=== PATIENT | male | born 1990 | race Caucasian/White ===

== ENCOUNTER 2017-01-14 02:53 | Observation (INO) | payer MEDICAID ==
[~2017-01-14] VITALS: Ht 175.3 cm; Wt 95.3 kg
[2017-01-14 03:00] VITALS: BP 109/78; PULSE 129; RESP 19; TEMP 100.3; O2SAT 97
--- NOTE | 2017-01-14 03:00 | NUR ---
Patient to ER bed 8 to gown for evaluation. Side rails up. Report given to CRISTAL Coleman.
--- NOTE | 2017-01-14 03:05 | NUR ---
Pt states that since 1900 pt has been having frequent nausea and diarrhea with nausea. Pt reports body aches, malaise, and lower back pain 5/10. Pt has not been able to keep anything down. Pt placed on nuclear monitoring technician and will continue to monitor. No other injuries or complaints mentioned/noted. No distress noted.
--- NOTE | 2017-01-14 03:10 | NUR ---
# 18 gauge angiocath placed to L AC. Use of asceptic technique. Opsite placed over site. Blood return noted. Blood for lab drawn from site. Flushed with 10 cc of normal saline. No evidence of infiltration noted. Patient tolerated well.
[2017-01-14] MEDS ORDERED: PROCHLORPERAZINE EDISYLATE 10 MG/2 ML VIAL IVP ONE (03:15)
[2017-01-14] MEDS ORDERED: NACL 0.9% 1,000 ML IV ONE ×2 (03:15→04:00)
[2017-01-14 03:39] LABS: BASOPHILS # (AUTO) 0.2 K/uL (0.0-0.2); BASOPHILS % (AUTO) 1.2 % (0.0-2.0); EOSINOPHILS # (AUTO) 0.1 K/uL (0.0-0.4); HEMATOCRIT 53.3 % (36-54); HEMOGLOBIN 17.9 g/dL (14.0-18.0); LYMPHOCYTES # (AUTO) 0.7 K/uL (1.0-5.5); LYMPHOCYTES % (AUTO) 5.6 % (20.5-51.5); MEAN CORPUSCULAR HEMOGLOBIN 27 pg (27-31); MEAN CORPUSCULAR HGB CONC 34 % (32-36); MEAN CORPUSCULAR VOLUME 80 fL (79.0-98.0); MONOCYTES # (AUTO) 0.4 K/uL (0.0-1.0); MONOCYTES % (AUTO) 2.8 % (1.7-9.3); NEUTROPHILS # (AUTO) 11.1 K/uL (1.8-7.7); NEUTROPHILS % (AUTO) 89.4 % (40.0-70.0); PLATELET COUNT (AUTO) 213 K/uL (130-430); RED BLOOD CELL COUNT(AUTO) 6.65 MIL/uL (4.2-6.2); RED CELL DISTRIBUTION WIDTH 12.3 % (9.0-15.0); WHITE BLOOD COUNT (AUTO) 12.5 K/uL (4.8-10.8)
[2017-01-14 03:46] LABS: ANION GAP 12 (5-15); CALCIUM 9.6 mg/dL (8.4-11.0); CHLORIDE 103 mmol/L (98-107); CREATININE 1.13 mg/dL (0.55-1.30); GLUCOSE 140 mg/dL (70-99); POTASSIUM 4.2 mmol/L (3.5-5.1); SODIUM SERUM 142 mmol/L (136-145); UREA NITROGEN, BLOOD 22 mg/dL (8-21)
[2017-01-14 03:48] LABS: GFR AFRICAN AMERICAN 99 mL/min (>90)
[2017-01-14 03:52] LABS: BARBITURATE, URINE NEGATIVE (NEG <=200); BENZODIAZEPINE, URINE NEGATIVE (NEG <=150); CANNABINOID, URINE NEGATIVE (NEG <=50); COCAINE, URINE NEGATIVE (NEG <=150); METHAMPHETAMINES SCREEN,URINE NEGATIVE (NEG <=500); OPIATE, URINE NEGATIVE (NEG <=100); PHENCYCLIDINE SCREEN,URINE NEGATIVE (NEG <=25); UR TRICYCLIC ANTIDEPRESSANTS NEGATIVE (NEG <=300); URINE AMPHETAMINE NEGATIVE (NEG <=500); URINE METHADONE NEGATIVE (NEG <=200); URINE OXYCODONE SCREEN NEGATIVE (NEG <=100); URINE PROPOXYPHENE SCREEN NEGATIVE (NEG <=300)
[2017-01-14 03:55] LABS: BILIRUBIN,URINE 1+ (NEGATIVE); BLOOD, URINE 2+ (NEGATIVE); CLARITY/URINE CLOUDY (CLEAR); COLOR,URINE YELLOW (YELLOW); GLUCOSE,URINE NEGATIVE (NEGATIVE); KETONES,URINE TRACE (NEGATIVE); LEUKOCYTE ESTERASE ,URINE NEGATIVE (NEGATIVE); NITRITE, URINE NEGATIVE (NEGATIVE); PROTEIN URINE 1+ (NEGATIVE); UROBILINOGEN,URINE 0.2 (0.2-1.0)
[2017-01-14 03:55] LABS: ALANINE AMINOTRANSFERASE 83 U/L (12-78); ALBUMIN 4.3 g/dL (3.4-4.8); ASPARTATE AMINOTRANSFERASE 32 U/L (10-37); TOTAL BILIRUBIN 0.8 mg/dL (0.0-1.0); TOTAL PROTEIN, SERUM 8.7 g/dL (6.4-8.3)
--- NOTE | 2017-01-14 04:00 | NUR ---
Sepsis protocol re-evaluated with Dr. Medrano. No further orders at this time.
[2017-01-14 04:23] LABS: BACTERIA,URINE MODERATE /HPF (None Seen); WBC,URINE 0-3 /HPF (0-3)
[2017-01-14 04:24] LABS: MUCUS,URINE None Seen /LPF (None Seen)
--- NOTE | 2017-01-14 04:45 | NUR ---
Pt is positive orthostatic vitals. Pt was dizzy when standing up. Dr. Medrano made aware.
[2017-01-14] MEDS ORDERED: ONDANSETRON HCL 4 MG/2 ML VIAL IVP PRN (05:30)
--- NOTE | 2017-01-14 06:37 | NUR ---
ADMISSION NOTE Received patient from ER via gurney. Patient admitted with diagnosis of Dehydration. Patient is awake, alert, oriented X 4. Patient oriented to hospital room, call light, toileting, pain management and safety-teach back done. Patient informed that Maida will be his nurse and that their room number is 133A. Personal belongings checked and Belongings List documented. Call light within reach.
--- NOTE | 2017-01-14 06:40 | NUR ---
Patient will be admitted to care of Dr. Garcia. Admitted to Telemetry unit. Will go to room 135A. Summary report printed. Report given to admitting RN.
[2017-01-14 06:43] VITALS: BP 126/73; PULSE 132; RESP 19; TEMP 98
--- NOTE | 2017-01-14 08:32 | NUR ---
OPENING NOTE RECEIVED REPORT FROM NIGHT NURSE, PATIENT IS RESTING COMFORTABLY IN BED WITH NO COMPLAINTS OF PAIN, NO NOTED DISTRESS, DISCOMFORT OR SOB. PATIENT IS ALERT AND ORIENTED AND ABLE TO COMMUNICATE NEEDS TO STAFF. PATIENT IS AMBULATORY. PATIENT IS EDUCATED TO CALL FOR ASSISTANCE BEFORE GETTING UP, BED IS IN LOWEST POSITION AND CALL LIGHT IS WITHIN REACH. WILL CONTINUE TO MONITOR.
[2017-01-14] MEDS: NACL 0.9% 1,000 ML IV SCH ×4 (10:00→20:26)
--- NOTE | 2017-01-14 10:34 | NUR ---
NOTE PATIENT IS RESTING IN BED COMFORTABLY WITH NO COMPLAINTS OF PAIN, NO NOTED DISTRESS, DISCOMFORT OR SOB. IV HYDRATION WAS STARTED AND PATIENT IS TOLERATING IT WELL. VITAL SIGNS ARE WITHIN NORMAL RANGE, PATIENT IS STILL ST AND AM STILL MONITORING. CALL LIGHT IS WITHIN REACH AND WILL CONTINUE TO MONITOR.
[2017-01-14 12:00] VITALS: BP 122/74; PULSE 122; RESP 16; TEMP 97.8; O2SAT 93
--- NOTE | 2017-01-14 12:30 | NUR ---
NOTE PATIENT IS RESTING IN BED COMFORTABLY IN BED WITH NO COMPLAINTS OF PAIN, NO NOTED DISTRESS, DISCOMFORT OR SOB. BED IS IN LOWEST POSITION AND CALL LIGHT IS WITHIN REACH. WILL CONTINUE TO MONITOR.
--- NOTE | 2017-01-14 13:12 | NUR ---
NOTE DR TORRES WAS AT BEDSIDE AND NEW ORDER TO INCREASE DIET TO FULL LIQUIDS WAS NOTED AND CARRIED OUT. PATIENT IS AWARE
--- NOTE | 2017-01-14 14:04 | NUR ---
NOTE PATIENT IS AMBULATING WITH IN STABLE CONDITION WITH NO COMPLAINTS OF PAIN, NO NOTED DISTRESS, DISCOMFORT OR SOB. WILL CONTINUE TO MONITOR.
[2017-01-14 16:00] VITALS: BP 121/74; PULSE 84; RESP 16; TEMP 98.4; O2SAT 95
--- NOTE | 2017-01-14 16:00 | NUR ---
NOTE PATIENT IS RESTING IN BED COMFORTABLY WITH NO COMPLAINTS OF PAIN, NO NOTED DISTRESS, DISCOMFORT OR SOB. BED IS IN LOWEST POSITION AND CALL LIGHT IS WITHIN REACH. IS AT BEDSIDE AND WILL CONTINUE TO MONITOR.
--- NOTE | 2017-01-14 17:42 | NUR ---
NOTE PATIENT IS RESTING COMFORTABLY IN BED WITH NO COMPLAINTS OF PAIN, NO NOTED DISTRESS, DISCOMFORT OR SOB. FAMILY IS AT BEDSIDE AND CALL LIGHT IS WITHIN REACH. WILL CONTINUE TO MONITOR.
--- NOTE | 2017-01-14 18:23 | NUR ---
CLOSING NOTE PATIENT IS RESTING IN BED WITH NAUSEA AND ZOFRAN WAS GIVEN, NO COMPLAINTS OF PAIN, NO NOTED DISTRESS OR SOB. IS AT BEDSIDE AND WILL GIVE REPORT TO NIGHT NURSE. CALL LIGHT IS WITHIN REACH.
[2017-01-14 20:00] VITALS: BP 125/77; PULSE 103; RESP 18; TEMP 97.2; O2SAT 97
--- NOTE | 2017-01-14 20:00 | NUR ---
Initial Notes Received patient laying in bed, awake, alert, oriented. Patient denies any acute distress or pain at this time. Breathing even and unlabored on room air. IV site patent/clean/dry. Patient denies any nausea at this time. Educated patient on use of call light for assistance and fall precautions, patient verbalized understanding. Call light in hand, fall precautions in place. Will continue to monitor.
--- NOTE | 2017-01-14 22:00 | NUR ---
Rounds Patient resting in bed, awake. Patient denies any acute distress or pain at this time, denies any N/V. IV site patent/clean/dry. Needs addressed, call light in hand. Will continue to monitor.
--- NOTE | 2017-01-15 | NUR ---
Rounds Patient resting in bed, awake. Patient denies any acute distress or pain at this time. Breathing even and unlabored. IV site patent/clean/dry. Patient denies any needs. Call light in hand, fall precautions in place. Will continue to monitor.
[2017-01-15] MEDS: NACL 0.9% 1,000 ML IV SCH ×2 (00:49→05:15)
[2017-01-15 01:08] VITALS: BP 125/70; PULSE 79; RESP 20; TEMP 98.2; O2SAT 100
--- NOTE | 2017-01-15 02:00 | NUR ---
Rounds Patient resting in bed with eyes closed, no acute distress noted. Breathing even and unlabored. Call light in hand, fall precautions in place. Will continue to monitor for changes and safety.
[2017-01-15 04:00] VITALS: BP 109/59; PULSE 78; RESP 17; TEMP 97.5; O2SAT 100
--- NOTE | 2017-01-15 04:20 | NUR ---
Rounds Patient resting in bed with eyes closed, easily aroused. Patient denies any acute distress or pain. Breathing even and unlabored. IV site patent/clean/dry. Patient denies any needs at this time. Will continue to monitor.
--- NOTE | 2017-01-15 06:24 | NUR ---
Closing Notes Patient resting in bed with eyes closed, easily aroused. Patient denies any acute distress or pain at this time. Breathing even and unlabored. IV site patent/clean/dry, no S/S infection/infiltration noted. Needs addressed throughout shift. Call light in hand, fall precautions in place. Will continue to monitor for changes and safety, and endorse all patient care/needs to oncoming nurse.
[2017-01-15 07:30] VITALS: BP 119/71; PULSE 67; RESP 18; TEMP 97.8; O2SAT 97
--- NOTE | 2017-01-15 07:30 | NUR ---
Initial rounds Slept well as verbalized denies any abdominal pain, no nausea ready to go home as verbalized, plan of care , increase diet as tolerated soft bland diet possible to avoid gastritis , needs attended.
--- NOTE | 2017-01-15 10:20 | NUR ---
MD rounds Seen and examined by dr Jesu Garcia tolerating po well no nausea no vomiting , encouraged to increased oral fluid intake for hydration and verbalized understanding.
[2017-01-15 10:57] VITALS: BP 104/57; PULSE 61; RESP 21; TEMP 98.1; O2SAT 97
[2017-01-15 11:30] VITALS: BP 104/57; PULSE 61; RESP 18; TEMP 98.1; O2SAT 97
--- NOTE | 2017-01-15 11:40 | NUR ---
Nutrition Note RD provided nutrition education for nausea/vomiting per RN request. Please see teaching notes.
--- NOTE | 2017-01-15 12:15 | NUR ---
TOLERATES SOFT DIET WITHOUT NAUSEA AND PAIN .
--- NOTE | 2017-01-15 12:30 | NUR ---
D/C Patient Patient given discharge instructioninstructions. Exit Care provided. Patient verbalized understanding. MD discussed with patient the results and treatment provided. Ambulatory with steady gait for discharge to home. Patient in stable condition, ID band removed. IV catheter removed, intact and dressing applied, no active bleeding. Patient educated on pain management/diet . All belongings sent with patient.
== END 2017-01-15 12:30 | disposition home or self-care (01) ==
LOC: SED 02:53 → STU 05:22
PROVIDERS: ADMIT Internal Medicine; ATTEND Internal Medicine
DX: E86.0 Dehydration (principal); R11.10 Vomiting, unspecified; E66.9 Obesity, unspecified
CPT/HCPCS: 36415; 76700; 80053; 80307; 81000; 84484; 85025; 87086; 93005; 96361 ×3; 96374; 96375; 99285; G0378 ×2; J0780; J2405; J7030 ×2